=== PATIENT | female | born 1950 | race Caucasian/White ===

== ENCOUNTER → 2016-11-08 | Outpatient (CLI) | payer MEDICARE | LOC: MW.LAB 08:42 | PROVIDERS: ATTEND Internal Medicine Cardiovascular Disease | DX: Z51.81 Encounter for therapeutic drug level monitoring (principal); Z79.01 Long term (current) use of anticoagulants | CPT/HCPCS: 36415; 85610 ==

== ENCOUNTER → 2016-11-21 | Outpatient (CLI) | payer MEDICARE | LOC: MW.LAB 11:50 | PROVIDERS: ATTEND Internal Medicine Cardiovascular Disease | DX: Z51.81 Encounter for therapeutic drug level monitoring (principal); Z79.01 Long term (current) use of anticoagulants | CPT/HCPCS: 36415; 85610 ==

== ENCOUNTER → 2016-12-26 | Outpatient (CLI) | payer MEDICARE | LOC: MW.LAB 14:00 | PROVIDERS: ATTEND Internal Medicine Cardiovascular Disease | DX: Z51.81 Encounter for therapeutic drug level monitoring (principal); Z79.01 Long term (current) use of anticoagulants | CPT/HCPCS: 36415; 85610 ==

== ENCOUNTER → 2017-01-09 | Outpatient (CLI) | payer MEDICARE, MEDICAID ==
[2017-01-09 09:43] LABS: CHLORIDE,CL 105 mmol/L (98-110); SODIUM,NA 140 mmol/L (136-146)
== END ==
LOC: MW.CHIM 08:35
PROVIDERS: ATTEND Internal Medicine
DX: I10 Essential (primary) hypertension (principal); E11.9 Type 2 diabetes mellitus without complications; E11.610 Type 2 diabetes mellitus with diabetic neuropathic arthropathy; I48.91 Unspecified atrial fibrillation; Z79.01 Long term (current) use of anticoagulants
CPT/HCPCS: 36415; 80053; 80061; 83036; 85025; 99214

== ENCOUNTER → 2017-01-23 | Outpatient (CLI) | payer MEDICARE | LOC: MW.LAB 10:44 | PROVIDERS: ATTEND Internal Medicine Cardiovascular Disease | DX: Z51.81 Encounter for therapeutic drug level monitoring (principal); Z79.01 Long term (current) use of anticoagulants | CPT/HCPCS: 36415; 85610 ==

== ENCOUNTER 2022-01-26 13:55 | Observation (INO) | payer MEDICAID, MEDICARE ==
[2022-01-26] MEDS ORDERED: cefTRIAXone 1 GM in Sodium Chloride 0.9% 50 ML IV ONE (14:57)
[2022-01-26] MEDS ORDERED: HYDROmorphone 1 MG/ML Syringe IVPUSH ONE ×2 (14:58→18:15)
[2022-01-26] MEDS ORDERED: Ondansetron 4 MG/2 ML SDV IVPUSH ONE (15:05)
[2022-01-26] MEDS ORDERED: VANCOmycin 1.5 GM/300 ML 1.5 GM in Premix Bag 1 BAG IV ONE (15:15)
[2022-01-26 15:30] LABS: CARBON DIOXIDE,CO2 23.3 mmol/L (21.0-32.0); POTASSIUM,K 3.3 mmol/L (3.5-5.1)
[2022-01-26] MEDS ORDERED: Morphine 2 MG/ML SYRINGE IVPUSH PRN (20:50)
[2022-01-26] MEDS ORDERED: Albuterol/Ipratropium 3.0-0.5 MG/3 ML Neb Soln NEB PRN (20:50)
[2022-01-26] MEDS ORDERED: Acetaminophen 325 MG Tab PO PRN (20:50)
[2022-01-26] MEDS ORDERED: Lactated Ringers 1,000 ML IV SCH (21:00)
[2022-01-26] MEDS ORDERED: PIPERACILLIN IV SCH (21:00)
[2022-01-26] MEDS ORDERED: TAZOBACTAM IV SCH (21:00)
[2022-01-26] MEDS ORDERED: SODIUM CHLORIDE 0.9% IV SCH (21:00)
[2022-01-26] MEDS: Heparin Sodium 5,000 Units/ML Vial SUBCUT SCH (21:36)
[2022-01-26 21:44] LABS: HEMOGLOBIN A1C 6.1 %
[2022-01-26] MEDS ORDERED: Glucagon,Human Recombinant 1 MG Vial IM PRN (23:19)
[2022-01-26] MEDS ORDERED: 50% Dextrose in Water 50 ML Syringe IVPUSH PRN (23:19)
[2022-01-26] MEDS ORDERED: Warfarin 2.5 MG Tab PO ONE (23:30)
[2022-01-27] MEDS ORDERED: Furosemide 20 MG Tab PO PRN (03:56)
[2022-01-27] MEDS: Piperacillin/Tazobactam 2.25 GM in Sodium Chloride 0.9% 50 ML IV SCH ×2 (04:19→13:08)
[2022-01-27] MEDS: Heparin Sodium 5,000 Units/ML Vial SUBCUT SCH ×2 (04:46→13:28)
[2022-01-27 07:13] LABS: CARBON DIOXIDE,CO2 20.2 mmol/L (21.0-32.0)
[2022-01-27] MEDS: Insulin Aspart 100 Units/ML 3 ML Pen SUBCUT SCH ×2 (07:20→11:45)
[2022-01-27] MEDS ORDERED: Pantoprazole 40 MG in Sodium Chloride 0.9% 10 ML IVPUSH SCH (09:00)
[2022-01-27] MEDS ORDERED: Phenytoin 100 MG Cap.ER PO SCH ×2 (09:00→21:00)
[2022-01-27] MEDS ORDERED: Sertraline 100 MG Tab PO SCH (09:00)
[2022-01-27] MEDS ORDERED: carBAMazepine 100 MG Cap.ER PO SCH ×2 (09:00→21:00)
[2022-01-27] MEDS ORDERED: Pantoprazole 40 MG Tab.CR PO SCH (09:00)
[2022-01-27 11:52] VITALS: BP 142/59; PULSE 81
[2022-01-27] MEDS ORDERED: Warfarin 5 MG Tab PO ONE (14:00)
[2022-01-27] MEDS ORDERED: Warfarin Sliding Scale PO SCH (14:00)
[2022-01-27] MEDS ORDERED: Furosemide 20 MG Tab PO SCH (21:00)
== END 2022-01-27 14:30 | disposition home or self-care (01) ==
LOC: MW.ED 13:55 → MW.MS 19:29
PROVIDERS: ADMIT Student in an Organized Health Care Education/Training Program; ATTEND Student in an Organized Health Care Education/Training Program
DX: L03.116 Cellulitis of left lower limb (principal); E11.621 Type 2 diabetes mellitus with foot ulcer; L98.499 Non-pressure chronic ulcer of skin of other sites with unspecified severity; I25.10 Atherosclerotic heart disease of native coronary artery without angina pectoris; F32.A Depression, unspecified; F41.9 Anxiety disorder, unspecified; I48.91 Unspecified atrial fibrillation; E78.00 Pure hypercholesterolemia, unspecified; I10 Essential (primary) hypertension; I87.2 Venous insufficiency (chronic) (peripheral); Z20.822 Contact with and (suspected) exposure to COVID-19; Z79.01 Long term (current) use of anticoagulants; Z79.899 Other long term (current) drug therapy; Z79.84 Long term (current) use of oral hypoglycemic drugs
CPT/HCPCS: 36415; 73700; 80048; 80053; 81003; 82947; 83036; 83605; 83735; 84100; 85025; 85610; 87040; 87070; 87205; 93005; 93922; 96365; 96366; 96367; 96375; 96376; 99285; A9270; J0696; J1170; J1644; J2270; J2405; J2543; J3370; J7120; U0002

== ENCOUNTER 2022-04-19 11:58 | Inpatient (IN) | payer MEDICARE ==
[2022-04-19 14:46] LABS: CORONAVIRUS COVID-19 NAA NEGATIVE (NEGATIVE); INFLUENZA A NAA NEGATIVE (NEGATIVE); INFLUENZA B NAA NEGATIVE (NEGATIVE)
[2022-04-19] MEDS ORDERED: Sodium Chloride 0.9% 1,000 ML IV ONE (17:48)
[2022-04-19] MEDS ORDERED: Ondansetron 4 MG/2 ML SDV IVPUSH ONE (17:48)
[2022-04-19] MEDS ORDERED: Ketorolac 30 MG/ML SDV IVPUSH ONE (17:48)
[2022-04-19] MEDS ORDERED: Acetaminophen 500 MG Tab PO ONE (17:49)
[2022-04-19] MEDS ORDERED: cefTRIAXone 1 GM in Sodium Chloride 0.9% 50 ML IV ONE (17:59)
[2022-04-19 18:35] LABS: CARBON DIOXIDE,CO2 20.7 mmol/L (21.0-32.0); POTASSIUM,K 3.2 mmol/L (3.5-5.1)
[2022-04-19] MEDS ORDERED: Albuterol/Ipratropium 3.0-0.5 MG/3 ML Neb Soln NEB PRN (20:00)
[2022-04-19] MEDS ORDERED: Warfarin 5 MG Tab PO SCH (20:15)
[2022-04-19] MEDS: Pantoprazole 40 MG in Sodium Chloride 0.9% 10 ML IVPUSH SCH (20:40)
[2022-04-19] MEDS: Lactated Ringers 1,000 ML IV SCH (20:40)
[2022-04-20] MEDS ORDERED: Potassium Chloride 20 MEQ Tab.ER PO ONE (00:13)
[2022-04-20] MEDS: Sertraline 100 MG Tab PO SCH ×2 (00:33→09:36)
[2022-04-20] MEDS: Phenytoin 100 MG Cap.ER PO SCH ×2 (00:36→21:48)
[2022-04-20] MEDS: Acetaminophen 325 MG Tab PO PRN ×2 (01:41→10:07)
[2022-04-20] MEDS: carBAMazepine 100 MG Cap.ER PO SCH ×3 (02:28→21:51)
[2022-04-20] MEDS: Piperacillin/Tazobactam 2.25 GM in Sodium Chloride 0.9% 100 ML IV SCH ×3 (04:46→20:10)
[2022-04-20 07:54] LABS: POTASSIUM,K 3.2 mmol/L (3.5-5.1)
[2022-04-20] MEDS ORDERED: cefTRIAXone 1 GM in Sodium Chloride 0.9% 50 ML IV SCH (09:00)
[2022-04-20] MEDS: Lactated Ringers 1,000 ML IV SCH ×2 (09:36→23:52)
[2022-04-20] MEDS: Calcitriol 0.25 MCG Cap PO SCH ×2 (09:36→21:50)
[2022-04-20] MEDS ORDERED: Glucagon,Human Recombinant 1 MG Vial IM PRN (10:20)
[2022-04-20] MEDS ORDERED: 50% Dextrose in Water 50 ML Syringe IVPUSH PRN (10:20)
[2022-04-20] MEDS ORDERED: fentaNYL 25 MCG/HR Transdermal Patch TRDERM SCH (10:30)
[2022-04-20] MEDS: Potassium Chloride 100 ML IV SCH ×2 (10:46→13:01)
[2022-04-20 12:37] LABS: CARBON DIOXIDE,CO2 20.1 mmol/L (21.0-32.0); POTASSIUM,K 3.9 mmol/L (3.5-5.1)
[2022-04-20] MEDS: Insulin Aspart 100 Units/ML 3 ML Pen SUBCUT SCH ×2 (13:24→17:53)
[2022-04-20] MEDS ORDERED: Warfarin 2.5 MG Tab PO ONE (14:00)
[2022-04-20] MEDS: Warfarin Sliding Scale PO SCH (15:27)
[2022-04-20] MEDS: Pantoprazole 40 MG in Sodium Chloride 0.9% 10 ML IVPUSH SCH (20:07)
[2022-04-20] MEDS: atorvaSTATin 40 MG Tab PO SCH (21:49)
[2022-04-20] MEDS: Pregabalin 50 MG Cap PO SCH (21:49)
[2022-04-20] MEDS: Latanoprost 0.005% Ophth Soln 2.5 ML Bottle EYEBOTH SCH (21:50)
[2022-04-21] MEDS: Piperacillin/Tazobactam 2.25 GM in Sodium Chloride 0.9% 100 ML IV SCH (03:33)
[2022-04-21] MEDS: Insulin Aspart 100 Units/ML 3 ML Pen SUBCUT SCH ×3 (06:35→18:25)
[2022-04-21 07:36] LABS: CARBON DIOXIDE,CO2 19.1 mmol/L (21.0-32.0); POTASSIUM,K 4.3 mmol/L (3.5-5.1)
[2022-04-21] MEDS: Calcitriol 0.25 MCG Cap PO SCH ×2 (08:51→21:54)
[2022-04-21] MEDS: Pregabalin 50 MG Cap PO SCH ×2 (08:51→21:45)
[2022-04-21] MEDS: Sertraline 100 MG Tab PO SCH (08:51)
[2022-04-21] MEDS: carBAMazepine 100 MG Cap.ER PO SCH ×2 (09:08→21:54)
[2022-04-21] MEDS: Acetaminophen 325 MG Tab PO PRN (09:08)
[2022-04-21] MEDS: Spironolactone 25 MG Tab PO SCH (09:08)
[2022-04-21] MEDS ORDERED: Sodium Chloride 0.9% 1,000 ML IV SCH (10:45)
[2022-04-21] MEDS ORDERED: Lactated Ringers 500 ML IV ONE (10:45)
[2022-04-21] MEDS ORDERED: Warfarin 5 MG Tab PO ONE (14:00)
[2022-04-21] MEDS: Warfarin Sliding Scale PO SCH (15:38)
[2022-04-21] MEDS: cefTRIAXone 1 GM in Sodium Chloride 0.9% 50 ML IV SCH (15:43)
[2022-04-21] MEDS: Lactated Ringers 1,000 ML IV SCH (18:27)
[2022-04-21 19:13] LABS: CARBON DIOXIDE,CO2 19.9 mmol/L (21.0-32.0); POTASSIUM,K 4.5 mmol/L (3.5-5.1)
[2022-04-21] MEDS: atorvaSTATin 40 MG Tab PO SCH (21:45)
[2022-04-21] MEDS: Phenytoin 100 MG Cap.ER PO SCH (21:45)
[2022-04-21] MEDS: Pantoprazole 40 MG in Sodium Chloride 0.9% 10 ML IVPUSH SCH (21:45)
[2022-04-21] MEDS: Latanoprost 0.005% Ophth Soln 2.5 ML Bottle EYEBOTH SCH (21:54)
[2022-04-22] MEDS: Lactated Ringers 1,000 ML IV SCH ×3 (02:58→23:51)
[2022-04-22 06:28] LABS: CARBON DIOXIDE,CO2 16.7 mmol/L (21.0-32.0); POTASSIUM,K 4.2 mmol/L (3.5-5.1)
[2022-04-22] MEDS ORDERED: Ondansetron 4 MG/2 ML SDV IVPUSH PRN (08:32)
[2022-04-22] MEDS ORDERED: Sodium Chloride 1 GM Tab PO ONE (08:44)
[2022-04-22] MEDS: carBAMazepine 100 MG Cap.ER PO SCH ×3 (09:22→20:14)
[2022-04-22] MEDS ORDERED: Lactated Ringers 500 ML IV SCH (11:15)
[2022-04-22] MEDS: Insulin Aspart 100 Units/ML 3 ML Pen SUBCUT SCH ×3 (11:19→18:57)
[2022-04-22] MEDS: Ondansetron 4 MG/2 ML SDV IVPUSH PRN (11:19)
[2022-04-22] MEDS: Calcitriol 0.25 MCG Cap PO SCH ×2 (11:20→20:11)
[2022-04-22] MEDS: Sertraline 100 MG Tab PO SCH (11:20)
[2022-04-22] MEDS: Spironolactone 25 MG Tab PO SCH (11:21)
[2022-04-22] MEDS: cefTRIAXone 1 GM in Sodium Chloride 0.9% 50 ML IV SCH (15:01)
[2022-04-22] MEDS: Warfarin Sliding Scale PO SCH (15:43)
[2022-04-22] MEDS: Phenytoin 100 MG Cap.ER PO SCH (20:09)
[2022-04-22] MEDS: atorvaSTATin 40 MG Tab PO SCH (20:09)
[2022-04-22] MEDS: Pantoprazole 40 MG in Sodium Chloride 0.9% 10 ML IVPUSH SCH (20:09)
[2022-04-22] MEDS: Latanoprost 0.005% Ophth Soln 2.5 ML Bottle EYEBOTH SCH (20:11)
[2022-04-23] MEDS: Ondansetron 4 MG/2 ML SDV IVPUSH PRN (02:00)
[2022-04-23 07:30] LABS: CARBON DIOXIDE,CO2 15.6 mmol/L (21.0-32.0); POTASSIUM,K 4.5 mmol/L (3.5-5.1)
[2022-04-23] MEDS: Insulin Aspart 100 Units/ML 3 ML Pen SUBCUT SCH ×2 (09:38→19:50)
[2022-04-23] MEDS: carBAMazepine 100 MG Cap.ER PO SCH (11:12)
[2022-04-23] MEDS: Calcitriol 0.25 MCG Cap PO SCH ×2 (11:12→20:51)
[2022-04-23] MEDS ORDERED: Sodium Bicarbonate 8.4% 50 MEQ/50 ML Syringe IV ONE (12:18)
[2022-04-23] MEDS: Sertraline 100 MG Tab PO SCH (12:23)
[2022-04-23] MEDS ORDERED: Phytonadione 5 MG in Sodium Chloride 0.9% 50 ML IV ONE (13:30)
[2022-04-23] MEDS: Sodium Bicarbonate 650 MG Tab PO SCH ×2 (13:35→20:18)
[2022-04-23] MEDS ORDERED: DEXTROSE 5% IV SCH ×2 (15:00)
[2022-04-23] MEDS ORDERED: SODIUM BICARBONATE IV SCH ×2 (15:00)
[2022-04-23] MEDS ORDERED: WATER IV SCH ×2 (15:00)
[2022-04-23] MEDS ORDERED: Sodium Bicarbonate 100 MEQ in Dextrose 5% in Water 1,000 ML IV SCH ×2 (15:45)
[2022-04-23] MEDS: Sodium Bicarbonate 100 MEQ in Dextrose 5% in Water 1,000 ML IV SCH ×2 (18:08)
[2022-04-23] MEDS: cefTRIAXone 1 GM in Sodium Chloride 0.9% 50 ML IV SCH (18:13)
[2022-04-23] MEDS: atorvaSTATin 40 MG Tab PO SCH (20:50)
[2022-04-23] MEDS: Pantoprazole 40 MG in Sodium Chloride 0.9% 10 ML IVPUSH SCH (20:50)
[2022-04-23] MEDS: Latanoprost 0.005% Ophth Soln 2.5 ML Bottle EYEBOTH SCH (20:51)
[2022-04-24] MEDS: Ondansetron 4 MG/2 ML SDV IVPUSH PRN (00:37)
[2022-04-24] MEDS: Sodium Bicarbonate 100 MEQ in Dextrose 5% in Water 1,000 ML IV SCH ×8 (01:59→18:57)
[2022-04-24 06:18] LABS: CARBON DIOXIDE,CO2 23.9 mmol/L (21.0-32.0)
[2022-04-24] MEDS: Sodium Bicarbonate 650 MG Tab PO SCH ×3 (06:48→18:58)
[2022-04-24] MEDS: Insulin Aspart 100 Units/ML 3 ML Pen SUBCUT SCH ×3 (08:00→18:57)
[2022-04-24] MEDS: Calcitriol 0.25 MCG Cap PO SCH ×2 (09:12→22:09)
[2022-04-24] MEDS ORDERED: Warfarin 2.5 MG Tab PO ONE (14:00)
[2022-04-24] MEDS: Warfarin Sliding Scale SCH (14:31)
[2022-04-24] MEDS: cefTRIAXone 1 GM in Sodium Chloride 0.9% 50 ML IV SCH (18:57)
[2022-04-24] MEDS: Pantoprazole 40 MG in Sodium Chloride 0.9% 10 ML IVPUSH SCH (20:31)
[2022-04-24] MEDS: atorvaSTATin 40 MG Tab PO SCH (20:31)
[2022-04-24] MEDS: Latanoprost 0.005% Ophth Soln 2.5 ML Bottle EYEBOTH SCH (20:32)
[2022-04-24] MEDS: oxyCODONE 5 MG Tab PO PRN (22:09)
[2022-04-25] MEDS: Acetaminophen 325 MG Tab PO PRN ×4 (00:17→17:43)
[2022-04-25] MEDS: Sodium Bicarbonate 100 MEQ in Dextrose 5% in Water 1,000 ML IV SCH ×4 (00:18→09:19)
[2022-04-25] MEDS: Insulin Aspart 100 Units/ML 3 ML Pen SUBCUT SCH ×3 (06:31→17:28)
[2022-04-25 07:14] LABS: POTASSIUM,K 3.5 mmol/L (3.5-5.1)
[2022-04-25] MEDS: oxyCODONE 5 MG Tab PO PRN ×2 (08:50→17:42)
[2022-04-25] MEDS: Sodium Bicarbonate 650 MG Tab PO SCH ×3 (08:51→17:42)
[2022-04-25] MEDS: Calcitriol 0.25 MCG Cap PO SCH (08:51)
[2022-04-25] MEDS ORDERED: Warfarin 2.5 MG Tab PO ONE (14:00)
[2022-04-25] MEDS: Warfarin Sliding Scale SCH (14:26)
[2022-04-25] MEDS: cefTRIAXone 1 GM in Sodium Chloride 0.9% 50 ML IV SCH (15:01)
[2022-04-25 15:49] VITALS: BP 148/73; PULSE 85
== END 2022-04-25 18:35 | DRG 690 ==
LOC: MW.ED 11:58 → MW.MS 18:52
PROVIDERS: ADMIT Student in an Organized Health Care Education/Training Program; ATTEND Student in an Organized Health Care Education/Training Program
DX: N39.0 Urinary tract infection, site not specified (principal); R53.1 Weakness; N20.1 Calculus of ureter; R50.9 Fever, unspecified; I48.91 Unspecified atrial fibrillation; E78.5 Hyperlipidemia, unspecified; I25.10 Atherosclerotic heart disease of native coronary artery without angina pectoris; R56.9 Unspecified convulsions; I83.009 Varicose veins of unspecified lower extremity with ulcer of unspecified site; E11.22 Type 2 diabetes mellitus with diabetic chronic kidney disease; Z20.822 Contact with and (suspected) exposure to COVID-19; I12.9 Hypertensive chronic kidney disease with stage 1 through stage 4 chronic kidney disease, or unspecified chronic kidney disease; N18.9 Chronic kidney disease, unspecified; I87.2 Venous insufficiency (chronic) (peripheral); D63.1 Anemia in chronic kidney disease; E78.00 Pure hypercholesterolemia, unspecified; F41.9 Anxiety disorder, unspecified; F32.A Depression, unspecified; B96.20 Unspecified Escherichia coli [E. coli] as the cause of diseases classified elsewhere; Z79.84 Long term (current) use of oral hypoglycemic drugs; Z79.899 Other long term (current) drug therapy; Z79.01 Long term (current) use of anticoagulants; Z86.19 Personal history of other infectious and parasitic diseases
CPT/HCPCS: 0240U; 36415; 51702; 70450; 74176; 80048; 80053; 80156; 80185; 81001; 82140; 82947; 83605; 83735; 83880; 84100; 84550; 85025; 85027; 85610; 87040; 87077; 87086; 87088; 87154; 87186; 93306; 96365; 96375; 97161; 97530; 99285; A9270-GY; C9113; J0696; J1815-GY; J1885; J2405; J2543; J3430; J3480; J3490; J7030; J7060; J7120